=== PATIENT | male | born 1970 | race Caucasian/White ===

== ENCOUNTER 2017-01-10 08:57 | Inpatient (IN) ==
[~2017-01-10 08:57] MED LIST: ALVIMOPAN 12 MG CAPSULE PO ONE; ERTAPENEM 1,000 MG in SODIUM CHLORIDE 0.9% 100 ML IV ONE
[2017-01-10] MEDS ORDERED: DIAZEPAM 5 MG TABLET PO ONE (09:19)
[2017-01-10] MEDS ORDERED: FAMOTIDINE 20 MG TABLET PO ONE (09:19)
[2017-01-10] MEDS ORDERED: LACTATED RINGERS 1,000 ML IV SCH (09:30)
--- NOTE | 2017-01-10 09:36 | History and Physical Update ---
History and Physical Update - History and Physical H&P was reviewed, the patient examined and there: are no changes in the patients condition since last H&P was completed. - Dictation Physical: refer to scanned H&P
[2017-01-10] MEDS ORDERED: DIAZEPAM 5 MG TABLET PO STA (09:42)
[2017-01-10] MEDS ORDERED: ERTAPENEM 1,000 MG VIAL ONE (09:45)
[2017-01-10] MEDS ORDERED: SODIUM CHLORIDE 0.9% 100 ML IV ONE (09:46)
[2017-01-10] MEDS ORDERED: ALVIMOPAN 12 MG CAPSULE ONE (09:46)
[2017-01-10] MEDS ORDERED: FAMOTIDINE 20 MG TABLET ONE (09:46)
[2017-01-10] MEDS ORDERED: NEOSTIGMINE 10 MG/10 ML VIAL ONE (13:39)
[2017-01-10] MEDS ORDERED: SUCCINYLCHOLINE 200 MG/10 ML VIAL ONE (13:39)
[2017-01-10] MEDS ORDERED: LIDOCAINE 1% 5 ML VIAL ONE (13:39)
[2017-01-10] MEDS ORDERED: ONDANSETRON 4 MG/2 ML VIAL ONE ×2 (13:39→17:44)
[2017-01-10] MEDS ORDERED: GLYCOPYRROLATE 0.4 MG/2 ML VIAL ONE (13:39)
[2017-01-10] MEDS ORDERED: PROPOFOL 500 MG/50 ML BOTTLE IV ONE (13:39)
[2017-01-10] MEDS ORDERED: ROCURONIUM 100 MG/10 ML VIAL IV ONE (13:39)
[2017-01-10] MEDS ORDERED: DEXAMETHASONE 10 MG/1 ML VIAL ONE (13:39)
[2017-01-10] MEDS ORDERED: METHYLENE BLUE 10 ML VIAL IV ONE (15:00)
[2017-01-10] MEDS ORDERED: MIDAZOLAM 2 MG/2 ML VIAL ONE (15:21)
[2017-01-10 15:38] LABS: Amorphous Crystals,Urine Many /HPF (Few); Apearance,Urine CLOUDY (Clear); Bilirubin,Urine Negative (Negative); Blood, Urine Negative (Negative); Glucose,Urine (UA) Negative (Negative); Ketones,Urine Negative (Negative); Mucus,Urine Few /LPF (Occasional); Nitrite,Urine Negative (Negative); Protein,Urine 30 MG/DL; RBC,Urine <1 /HPF (0-4); Urine Color Amber (Yellow); Urine Specific Gravity 1.019 (1.001-1.035); Urine Urobilinogen < 2.0 EU/DL (0.2-1.0); WBC,Urine <1 /HPF (0-6)
--- NOTE | 2017-01-10 16:54 | Event Note ---
I was asked by Dr. Em to come in and look at the right ureter. He had dissected an abscessed area out of the pelvis. This area was indurated and he identified the ureter above this wanted an opinion about opening up behind the abscess to trace out the ureter where he had bluntly dissected the bowel away. This area of concern appeared to be the back wall of the small abscess. This area was very thickened and friable. I traced the ureter down close to the thickened friable area and did not feel that it was safe to try to dissected out past this point. I do not see evidence of the ureter injury and felt that the exposed area was the back wall of the original abscess. I did recommend that we place a drain. Remainder the procedure was done by Dr. Em. Please see his separate operative note.
[2017-01-10] MEDS ORDERED: HYDROmorphone 2 MG/1 ML VIAL ONE (17:43)
[2017-01-10] MEDS ORDERED: HYDROmorphone 2 MG/1 ML VIAL IV PRN (17:44)
[2017-01-10] MEDS ORDERED: ONDANSETRON 4 MG/2 ML VIAL IV PRN ×2 (17:44→18:19)
--- NOTE | 2017-01-10 17:52 | Operative Note ---
Date of procedure: 01/10/17 Pre-op diagnosis: Complicated sigmoid diverticular disease Post-op diagnosis: same Procedure: Preoperative diagnosis Complicated sigmoid diverticular disease with prior abscess formation Postoperative diagnosis Same Procedures performed 1. Robotic assisted laparoscopic converted to open sigmoid colectomy 2. Small bowel resection 22 modifier Findings The patient had an adhesion with a loop of ileum into the pelvis which likely represented the site of the prior abscess cavity. There is a sigmoid colon diverticulum that was stuck to this area as well which likely represented prior diverticular rupture with abscess. This area was very firm and I was unable to safely dissected away the colon and the loop of small bowel using minimally invasive surgery. I converted to an open procedure and was able to do this more safely with blunt dissection digitally. There was an area in the right pelvic sidewall where the ureter went behind some very thick inflamed scar tissue where this abscess cavity was likely present in the past. The right and left ureter were visualized but the right ureter went behind this area of inflammation. All these issues made the operation take more than twice usual length of time. I asked Dr. Tyson to come in and evaluate the right ureter situation and he agreed that trying to dissected this friable inflamed area where the prior abscess cavity was was more risk than benefit and it appears as though the ureter went behind this. I did leave a drain in the pelvis and overlying this area of dissection and I also instilled the bladder with 400 mL' s of methylene blue and there was no extravasation from the bladder during this maneuver. A stapled 28 mm EEA anastomosis was performed and the airleak test was negative. Small bowel resection was also performed. Complications None apparent Specimen 1. Sigmoid colon 2. Small bowel resection Blood loss 50 mL Anesthesia GETA Indications Complicated sigmoid diverticular disease with prior abscess formation Description of procedure The patient was taken to the operating room and transferred to the operating table in the supine position. Pressure points were padded and SCDs were placed in the bilateral lower extremities. General endotracheal anesthesia was administered. A Dowell catheter was placed with cloudy urine output that appeared concentrated. The patient was placed in lithotomy position. The abdomen was prepped with chlorhexidine and the perineum was prepped with Betadine and both were draped sterilely. Preoperative antibiotics were administered, and a timeout was performed. The abdomen was entered in a supraumbilical location on the right side of the abdomen with a Veress needle. An 8 mm skin incision was made with an 11 blade scalpel and penetrating towel clips were used to grasp the abdominal wall skin. A Veress needle was used into the peritoneal cavity confirmed by double click technique. Aspiration was negative. Saline drop test confirmed intraperitoneal location. The abdomen was insufflated to 15 mmHg with an initial insufflation pressure of 2 mmHg. The Veress needle was removed and an 8 mm robotic trocar was placed blindly. Laparoscope was inserted. There was no evidence of Veress needle or trocar injury. The patient was placed in Trendelenburg position and right side was rolled down. There is an area of diseased sigmoid colon in the pelvis that was stuck to the right pelvic sidewall with a loop of small bowel which appeared to be terminal ileum was also adherent to this location. There was no evidence of malignancy on diagnostic laparoscopy and the remainder of the laparoscopic exploration was negative for any acute pathology. Under direct visualization, a 12 mm right lower quadrant robotic trocar and an additional 8 mm midepigastric robotic trocar was placed and a 5 mm assistant warehouse manager trocar was placed in the right abdomen. The robot was then docked. At this time and went to the console and began robotic assisted laparoscopic dissection. The sigmoid and descending colon was mobilized along the white line of Toldt in the left ureter was seen and protected. The dissection was then carried down into the pelvis were I encountered a very firm area in the sigmoid colon with a large diverticulum extending into the right pelvic sidewall which was also adherent to a loop of terminal ileum as well as the pelvic sidewall. I attempted dissection of this area but it was very stuck and had evidence of fibrotic changes. This did not seem safe to continue with minimally invasive surgery so I decided to convert to an open procedure. I re-scrubbed at the bedside portion of the case the robot was undocked. The trochars were removed. A midline laparotomy incision was made. A small serosal cautery injury was encountered on entering the abdomen and this was oversewn with 3-0 silk sutures. This was on the jejunum. Exploration revealed no evidence of other issues with the bowel or injury on entry. The Bookwalter retractor was used to retract the abdominal wall. The finger fracture technique was then used to separate the small bowel and colon from the right pelvic sidewall. This came down easily and these 2 segments of the intestine were isolated. A portion of healthy-appearing descending colon was then prepared for transection. A window in the mesentery was created with electrocautery. The LigaSure was used to extend the mesenteric dissection down towards the rectum. The bowel was divided at this location with a pursestring device and a 28 mm EEA anvil was placed in the proximal transection site of the colon. The Endo was tied down with a pursestring. There was some slipping of the mucosa and serosa of the bowel and the pursestring so additional sutures were placed to ensure that a full-thickness anastomosis was achieved. The mesentery of the distal sigmoid colon and rectum was then divided with a LigaSure device with care to visualize and preserve the ureters bilaterally. The rectum was actually kinked on itself in the pelvis and this had to be circumferentially mobilized until it could adequately stretch out for the planned anastomosis. At this point I left the abdominal portion went to the anal portion of the case were EEA sizers were placed through the anus into the rectum. It was easy to visualize as the assistant warehouse manager placed the anvil on the EEA stapler after it was deployed through the rectal wall. The stapler was then fired and an air leak test was performed. There was no air leak initially or under compression of the proximal colon. At this point I left the anal portion and re-scrubbed at the abdominal portion of the surgery after changing gown and gloves. Tisseel was placed over the anastomosis and a small mesentery defect in the descending colon mesentery was repaired with running 3-0 Vicryl suture. The terminal ileum appeared to be amenable to a primary resection and I felt that this bowels to beat up to leave in the risk of leak was too high based on how it looked. In addition this area was extremely fibrotic and also concerned about obstructive symptoms postoperatively. Windows were created in the mesentery of the small bowel and the bowel was transected with bowel clamps. The intervening mesentery was divided with a LigaSure. Small bowel segment was discarded. A [id number] stapled anastomosis was performed. The common enterotomy was closed with a TA 90 mm stapler. The ileocecal valve was visualized and was not affected by this anastomosis although the anastomosis was fairly close to the ileocecal valve. The mesenteric defect was closed with a running 3-0 Vicryl suture. The abdomen was irrigated. The right ureter was again visualized along the lateral abdominal sidewall on the right side but as it went down into the pelvis it went behind this area of abscess formation where there is some firm fibrotic tissue present. The patient did have some pink tinged urine during the operation. Methylene blue was instilled into the bladder and there was no evidence of bladder leak. 400 cc was instilled. The left ureter was easily dissected down to the pelvis and was free of injury. The right ureter, however went behind this area of abscess in the right pelvic sidewall and I asked Dr. Tyson to come and assess whether dissecting this out would be worth the risk of injury given the inflammation in the area. He agreed that this did not appear to be significant enough risk of injury of the ureter to warrant the risk of dissecting this area out and we did visualize the ureter up into this and he was diving deep into the tissues behind the abscess cavity. A #10 DARRICK drain was placed near the anastomosis of the colorectal anastomosis and also overlying the area of abscess dissection in the abscess cavity. The abdomen was irrigated and suctioned out and laparotomy sponges were used to clear out the fluid. The midline incision was closed with a running #1 PDS sutures 2. The skin incisions were closed with skin clips and the DARRICK drain was sewn in through the lateral right lower quadrant trocar with 2-0 nylon sutures. The patient appeared to tolerate the procedure well. His Dowell catheter was left in place and he will be continued on antibiotics until his urinalysis returns for possible urinary tract infection. Postoperative plan Pain control and await return of bowel function Anesthesia: LYNNE Surgeon / Physician: Toby Em Cna Pct: Ponce Tyson III. Estimated blood loss: minimal (50 mL) Specimens: other (SIGMOID COLON small bowel) Condition: stable Disposition: PACU Discharge Plan - Discharge Medications No Action Levothyroxine Tab [Synthroid Tab] 75 mcg PO DAILY@0700 medroxyPROGESTERone TAB [Provera] 2 tablet PO BEDTIME Cholecalciferol (Vitamin D3) [Vitamin D3] 1,000 unit PO DAILY Losartan Potassium 25 mg PO BID Pravastatin [Pravachol] 40 mg PO DAILY Montelukast Tab [Singulair Tab] 10 mg PO DAILY PARoxetine HCl [Paxil] 10 mg PO DAILY Omeprazole [Prilosec] 20 mg PO DAILY Isosorbide Mononitrate [Imdur] 30 mg PO DAILY Aspirin EC Tab 81 mg PO DAILY medroxyPROGESTERone TAB [Provera] 10 mg PO QAM - Follow Up or Referral - Forms/Instructions
[2017-01-10] MEDS ORDERED: SEVOFLURANE 1 UNIT/15 MINUTE INH ONE (17:55)
[2017-01-10] MEDS ORDERED: LACTATED RINGERS 2,000 ML IV ONE (17:55)
[2017-01-10] MEDS ORDERED: fentaNYL 100 MCG/2 ML VIAL ONE (17:55)
[2017-01-10] MEDS: LACTATED RINGERS 1,000 ML IV SCH (18:53)
[2017-01-10] MEDS: HYDROmorphone PCA 30 MG/30 ML SYRINGE IV SCH (18:53)
[2017-01-10] MEDS: CIPROFLOXACIN INJ 400 MG in PREMIX 1 EACH IV SCH (20:47)
[2017-01-10] MEDS: KETOROLAC 15 MG/1 ML VIAL IV SCH (20:53)
[2017-01-10] MEDS: ALVIMOPAN 12 MG CAPSULE PO SCH (20:55)
[2017-01-10] MEDS: medroxyPROGESTERone 5 MG TABLET PO SCH (20:55)
[2017-01-11] MEDS: KETOROLAC 15 MG/1 ML VIAL IV SCH ×4 (01:50→18:59)
[2017-01-11] MEDS: LACTATED RINGERS 1,000 ML IV SCH (02:26)
--- NOTE | 2017-01-11 06:09 | Event Note ---
General Surgery Progress Note Chief complaint This patient is a 46-year-old man admitted to the hospital following robotic assisted laparoscopic converted to open sigmoid colectomy with small bowel resection for complicated diverticular disease with prior abscess on 01/10/2017 Interval history No events overnight. Patient is urinating well. Urine is clearing up. Pain is well controlled. Labs are pending this morning. Vital signs are normal. Physical exam Afebrile with normal vital signs Chest is clear Heart is regular Abdomen is soft and appropriately tender. Nondistended. There is some bloody drainage on the inferior portion of the midline incision but has not saturated through completely. There are normal bowel sounds. The DARRICK drain is serosanguineous. Extremities with no edema Labs Pending Imaging None Assessment and plan Continue clear liquid diet Remove Dowell catheter Continue DVT chemoprophylaxis and SCDs as well as incentive spirometry Ambulate in hallway today Follow-up lab work Continue IV fluids but switch to D5 maintenance fluids repeat labs tomorrow
[2017-01-11] MEDS: LEVOTHYROXINE 75 MCG TABLET PO SCH (06:40)
[2017-01-11] MEDS: DEXT 5% NACL 0.45% KCL 40 MEQ 40 MEQ/1,000 ML BAG IV SCH (06:40)
[2017-01-11 06:51] LABS: Basophils % 0.1 % (0.0-0.8); Hematocrit 41.4 VOL% (42.0-52.0); Hemoglobin 14.5 GM/DL (14.0-18.0); Immature Granulocytes % 0.5 %; Immature Granulocytes Absolute 0.08 #; Lymphocytes # 1.1 10*3/uL (1.4-4.0); Lymphocytes % 7.2 % (21.2-54.2); Mean Corpuscular Hemoglobin 32 PG (27-34); Mean Corpuscular Volume 90.6 FL (87-102); Mean Platelet Volume 10.5 FL (9.6-12.0); Monocytes % 12.7 % (1.7-12.7); Neutrophils # 12.3 10*3/uL (1.4-7.4); Neutrophils % 79.5 % (38.7-73.9); Platelet Count 225 T/CUMM (130-400); Red Blood Count 4.57 MC/CUMM (3.8-5.5); Red Cell Distribution Width 13.7 % (9.3-17.3); White Blood Count 15.5 T/CUMM (4-12)
[2017-01-11 07:30] LABS: Calcium 8.4 MG/DL (8.5-10.1); Osmolality,Calculated 277.5 MOS/KG (273-304)
[2017-01-11] MEDS: CIPROFLOXACIN INJ 400 MG in PREMIX 1 EACH IV SCH ×2 (08:26→18:59)
[2017-01-11] MEDS: ALVIMOPAN 12 MG CAPSULE PO SCH ×2 (08:26→21:54)
[2017-01-11] MEDS: PANTOPRAZOLE 40 MG VIAL IV SCH (08:26)
[2017-01-11] MEDS: ISOSORBIDE MONONITRATE 30 MG TABLET PO SCH (08:26)
[2017-01-11] MEDS: MONTELUKAST 10 MG TABLET PO SCH (08:26)
[2017-01-11] MEDS: ASPIRIN EC 81 MG TABLET PO SCH (08:26)
[2017-01-11] MEDS: PRAVASTATIN 40 MG TABLET PO SCH (08:26)
[2017-01-11] MEDS: PARoxetine 10 MG TABLET PO SCH (08:26)
[2017-01-11] MEDS: CHOLECALCIFEROL 1,000 UNIT TABLET PO SCH (08:26)
[2017-01-11] MEDS: medroxyPROGESTERone 5 MG TABLET PO SCH ×2 (08:26→21:54)
[2017-01-11] MEDS ORDERED: NON-FORMULARY MEDICATION (Omeprazole [Prilosec] 20 MG) PO SCH (09:00)
--- NOTE | 2017-01-11 11:11 | Anesthesia Post-Op ---
Anesthesia Post OP - Post Ansesthetic Evaluation Patient seen in post op: Yes Resp: within normal limits CV: within normal limits Mental: within normal limits Temp: within normal limits [id number]: within normal limits Nausea and Vomiting: within normal limits Pain: within normal limits
[2017-01-11] MEDS: ENOXAPARIN 40 MG/0.4 ML SYRINGE SUBCUT SCH (12:15)
[2017-01-11] MEDS: HYDROmorphone PCA 30 MG/30 ML SYRINGE IV SCH (21:56)
[2017-01-12] MEDS: DEXT 5% NACL 0.45% KCL 40 MEQ 40 MEQ/1,000 ML BAG IV SCH ×3 (01:25→11:49)
[2017-01-12] MEDS: KETOROLAC 15 MG/1 ML VIAL IV SCH ×4 (01:28→19:10)
[2017-01-12 05:40] LABS: Basophils # 0.1 10*3/uL (0.0-0.2); Basophils % 0.4 % (0.0-0.8); Eosinophils # 0.1 10*3/uL (0.0-0.87); Eosinophils % 0.4 % (0.00-10.9); Hematocrit 38.9 VOL% (42.0-52.0); Hemoglobin 13.6 GM/DL (14.0-18.0); Immature Granulocytes % 0.4 %; Immature Granulocytes Absolute 0.05 #; Lymphocytes # 2.7 10*3/uL (1.4-4.0); Lymphocytes % 23.9 % (21.2-54.2); Mean Corpuscular Hemoglobin 32 PG (27-34); Mean Corpuscular Volume 92.4 FL (87-102); Mean Platelet Volume 10.5 FL (9.6-12.0); Monocytes # 1.8 10*3/uL (0.11-0.8); Monocytes % 15.5 % (1.7-12.7); Neutrophils # 6.7 10*3/uL (1.4-7.4); Neutrophils % 59.4 % (38.7-73.9); Platelet Count 200 T/CUMM (130-400); Red Blood Count 4.21 MC/CUMM (3.8-5.5); White Blood Count 11.3 T/CUMM (4-12)
[2017-01-12 06:09] LABS: Calcium 8.4 MG/DL (8.5-10.1); Magnesium 2.4 MG/DL (1.8-2.4); Osmolality,Calculated 283.8 MOS/KG (273-304); Potassium 4.1 MMOL/L (3.5-5.1)
[2017-01-12] MEDS: LEVOTHYROXINE 75 MCG TABLET PO SCH (07:13)
[2017-01-12] MEDS: CIPROFLOXACIN INJ 400 MG in PREMIX 1 EACH IV SCH (09:09)
[2017-01-12] MEDS: MONTELUKAST 10 MG TABLET PO SCH (09:09)
[2017-01-12] MEDS: ASPIRIN EC 81 MG TABLET PO SCH (09:09)
[2017-01-12] MEDS: PRAVASTATIN 40 MG TABLET PO SCH (09:09)
[2017-01-12] MEDS: ALVIMOPAN 12 MG CAPSULE PO SCH ×2 (09:09→21:31)
[2017-01-12] MEDS: PANTOPRAZOLE 40 MG VIAL IV SCH (09:09)
[2017-01-12] MEDS: medroxyPROGESTERone 5 MG TABLET PO SCH ×2 (09:09→21:28)
[2017-01-12] MEDS: PARoxetine 10 MG TABLET PO SCH (09:09)
[2017-01-12] MEDS: ISOSORBIDE MONONITRATE 30 MG TABLET PO SCH (09:09)
[2017-01-12] MEDS: CHOLECALCIFEROL 1,000 UNIT TABLET PO SCH (09:10)
[2017-01-12] MEDS ORDERED: HYDROmorphone 2 MG/1 ML VIAL IV PRN ×2 (10:46)
--- NOTE | 2017-01-12 11:19 | Pathology Report from [facility] ---
[facility] [place] ACCESSION # : [id number] PATIENT NAME : Surinder Cali ORDERING DR : Toby Em MD CLINICAL HX: Diverticulitis POST-OP DX: Same SPECIMEN INFO: #1 Sigmoid colon #2 Ileum GROSS DESCRIPTION: #1 Received in formalin labeled with the patients name SURINDER CALI and #1 consists of a segment of colon measuring 13.5 x 2.3 cm. Opening the colon reveals multiple diffuse non bleeding diverticula with no perforations or mucosal lesions appreciated. Received separately in the container are two ring-shaped fragments of mucosal tissue measuring 2.0 x 2.0 cm each. Sections submitted: 1A and 1B surgical margins, 1C divertulum.#2 Received in formalin labeled with the patients name SURINDER CALI and #2 consists of a segment of small bowel measuring 5.0 x 2.2 cm. The serosa is roman with a thickened fibrous area noted measuring 3.0 x 3.0 cm. The mucosal surface is roman with no mucosal, perforations appreciated. Sections submitted: 2A and 2B surgical margins, 2C area of serosal thickening. DIAGNOSIS FOR SURINDER CALI: #1 SIGMOID COLON SEGMENT RESECTION: Diverticulosis/diverticulitis, serosal fibrous adhesions with congestion and acute inflammation. Viable tissue present in proximal and distal specimen margins.#2 ILEUM SEGMENT RESECTION: Serosal fibrosis with congestion, acute and chronic inflammation. Viable tissue present in proximal and distal specimen margins. COLLECTED DATE: 01/11/2017 [facility] REPORT DATE: 01/12/2017 ELECTRONICALLY SIGNED BY: Cherelle Washington M.D. 01/12/2017 - 10:14:16 [facility]
[2017-01-12] MEDS: LOSARTAN 25 MG TABLET PO SCH ×2 (12:03→21:30)
[2017-01-12] MEDS: ENOXAPARIN 40 MG/0.4 ML SYRINGE SUBCUT SCH (12:03)
--- NOTE | 2017-01-12 16:03 | Event Note ---
General Surgery Progress Note Chief complaint This patient is a 46-year-old man admitted to the hospital following robotic assisted laparoscopic converted to open sigmoid colectomy with small bowel resection for complicated diverticular disease with prior abscess on 01/10/2017 Interval history The patient had a good day yesterday. He got up and walked in the hallway some. He is passing gas and some blood but has not had any bowel movements yet. His hemoglobin is stable and his labs look good today. He is tolerating diet without any nausea or vomiting Physical exam Afebrile with normal vital signs Chest is clear Heart is regular Abdomen is soft and appropriately tender. Nondistended. The midline incision is clean and there is no further bleeding. There are normal bowel sounds. The DARRICK drain is serosanguineous. Extremities with no edema Labs Reviewed, stable and normal Imaging None Assessment and plan Advance to low fiber diet Continue activity Continue pain control Discontinue IV fluids Discharge planning
[2017-01-13] MEDS: KETOROLAC 15 MG/1 ML VIAL IV SCH ×3 (00:39→12:38)
[2017-01-13] MEDS: LEVOTHYROXINE 75 MCG TABLET PO SCH (07:13)
[2017-01-13 08:19] LABS: Hematocrit 42.3 VOL% (42.0-52.0); Hemoglobin 14.9 GM/DL (14.0-18.0)
[2017-01-13] MEDS: LOSARTAN 25 MG TABLET PO SCH (09:32)
[2017-01-13] MEDS: ASPIRIN EC 81 MG TABLET PO SCH (09:32)
[2017-01-13] MEDS: PRAVASTATIN 40 MG TABLET PO SCH (09:33)
[2017-01-13] MEDS: ISOSORBIDE MONONITRATE 30 MG TABLET PO SCH (09:33)
[2017-01-13] MEDS: PARoxetine 10 MG TABLET PO SCH (09:33)
[2017-01-13] MEDS: CHOLECALCIFEROL 1,000 UNIT TABLET PO SCH (09:34)
[2017-01-13] MEDS: MONTELUKAST 10 MG TABLET PO SCH (09:34)
[2017-01-13] MEDS: medroxyPROGESTERone 5 MG TABLET PO SCH (09:34)
[2017-01-13] MEDS: PANTOPRAZOLE 40 MG VIAL IV SCH (09:39)
[2017-01-13] MEDS: ALVIMOPAN 12 MG CAPSULE PO SCH (09:48)
[2017-01-13 11:15] VITALS: BP 147/86
[2017-01-13] MEDS: ENOXAPARIN 40 MG/0.4 ML SYRINGE SUBCUT SCH (12:37)
--- NOTE | 2017-01-13 13:46 | Event Note ---
General Surgery Progress Note Chief complaint This patient is a 46-year-old man admitted to the hospital following robotic assisted laparoscopic converted to open sigmoid colectomy with small bowel resection for complicated diverticular disease with prior abscess on 01/10/2017 Interval history No events overnight. Patient is tolerating diet with no nausea or vomiting. He had several bowel movements yesterday and the blood is clearing up. He is ambulating in the hallway. Pain is well controlled. Repeat hemoglobin this morning is stable. Physical exam Afebrile with normal vital signs Chest is clear Heart is regular Abdomen is soft and appropriately tender. Nondistended. The midline incision is clean and there is no further bleeding. There are normal bowel sounds. The DARRICK drain is serosanguineous. Extremities with no edema Labs Hemoglobin is stable Imaging None Assessment and plan Discharge home Follow-up in clinic a week from Monday
--- NOTE | 2017-01-13 13:49 | Discharge Summary ---
Hospital Course - Hospital Course Hospital Course: 46-year-old white male who followed up in Dr. Em's clinic for history of diverticulitis after cardiac clearance from Dr. Hook. He was taken to the operating room on 01/10/2017 for robotic assisted laparoscopic converted to open sigmoid colectomy with small bowel resection for complicated sigmoid diverticular disease with prior abscess formation. Patient has done very well postoperatively. He is now tolerating a low fiber diet and he is ambulating in the halls. He has had multiple bowel movements as well. His pain is controlled and he will be discharged home with a one-week follow-up with Dr. Em. Care coordination, chart review, and completed discharge paperwork took approximately 32 minutes. - Time spent with patient Time with patient DS: Greater than 30 minutes Discharge Plan - Discharge Data Disposition: Disch To Home/Self Care Condition at Discharge: Stable Discharge Diet: other (Low fiber diet) Activity: no lifting Hygiene: may shower Driving: other (No driving if taking pain medications) Wound / Dressing Care Instructions: Okay to shower daily with mild soap and water, pat dry, okay to leave open to the air - Discharge Medications New HYDROcodone/ACETAMIN 7.5-325 [[place] 7.5-325] 1 tablet PO Q4H PRN #30 tablet PRN Reason: Pain Moderate (4-7) Continue Levothyroxine Tab [Synthroid Tab] 75 mcg PO DAILY@0700 medroxyPROGESTERone TAB [Provera] 20 mg PO BEDTIME Cholecalciferol (Vitamin D3) [Vitamin D3] 1,000 unit PO DAILY Losartan Potassium 25 mg PO BID Pravastatin [Pravachol] 40 mg PO DAILY Montelukast Tab [Singulair Tab] 10 mg PO DAILY PARoxetine HCl [Paxil] 10 mg PO DAILY Omeprazole [Prilosec] 20 mg PO DAILY Isosorbide Mononitrate [Imdur] 30 mg PO DAILY Aspirin EC Tab 81 mg PO DAILY medroxyPROGESTERone TAB [Provera] 10 mg PO QAM - Follow Up or Referral Follow Up: Toby Em MD [Physician] - 1 Week - Forms/Instructions Exam - Constitutional Vitals: Period Temp Pulse Resp BP Sys/Peña Pulse Ox Last 24 Hr 96.6 F-100.3 F 70-97 18-20 141-179/86-114 96-98 Discharge Results Labs on day of discharge: Labs from last 24 hours 01/13/17 07:55 Hgb 14.9 Hct 42.3 DS: Provider Date of admission: 01/10/17 17:16 Primary care physician: Maggy Cazares Attending physician on admission: Toby Em MD Consults: 01/12/17 14:25 Consult to Case Mgmt/Social Srvs [CONS] Routine Reason for Case Mgmt/Social Srvs: Home Health Consult Comment: Set up w/[facility] Discharging clinician: DAVID Gordillo Expected date of discharge: 01/13/17
== END 2017-01-13 15:08 | disposition home health service (06) | DRG 330 ==
LOC: N.OR 08:57 → N.SDSINP 08:59 → N.3E 18:18
PROVIDERS: ADMIT Surgery; ATTEND Surgery